=== PATIENT | female | born 1970 | race Caucasian/White ===

== ENCOUNTER 2018-04-22 11:34 | Outpatient (CLI) | payer OTHER | END 2018-04-22 14:02 | disposition home or self-care (01) | LOC: RAD 501 11:34 | DX: M25.561 Pain in right knee (principal); M25.562 Pain in left knee; M25.511 Pain in right shoulder ==

== ENCOUNTER 2018-04-22 14:33 | Outpatient (CLI) | payer OTHER | END 2018-04-22 14:35 | disposition home or self-care (01) | LOC: SONOGRAMA 14:33 | DX: M25.511 Pain in right shoulder (principal) ==